=== PATIENT | male | born 1990 | race American Indian/Alaskan Native ===

== ENCOUNTER 2017-01-18 19:22 | Emergency (ER) | payer OTHER ==
[2017-01-18 20:11] VITALS: BP 128/76
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
== END 2017-01-18 22:32 | disposition home or self-care (01) ==
LOC: ED 19:22
DX: M79.1 Myalgia (principal); V49.9XXA Car occupant (driver) (passenger) injured in unspecified traffic accident, initial encounter; Y93.89 Activity, other specified; Y99.9 Unspecified external cause status; Y92.410 Unspecified street and highway as the place of occurrence of the external cause
CPT/HCPCS: 99282